=== PATIENT | male | born 1945 | race Caucasian/White ===

== ENCOUNTER 2024-07-16 08:03 | Inpatient (IN) | payer OTHER ==
[~2024-07-16] VITALS: Ht 165.1 cm; Wt 60.3 kg
[2024-07-16] VITALS (16 sets, daily range): BP systolic 30–113; BP diastolic 17–77; PULSE 75–103; RESP 17–34; TEMP 95.1–96.7; O2SAT 82–100
[2024-07-16] MEDS: NACL 0.9% 1,000 ML IV ONE (08:35)
[2024-07-16] MEDS: ETOMIDATE 20 MG/10 ML VIAL IVP ONE (08:35)
[2024-07-16] MEDS: SUCCINYLCHOLINE CHLORIDE 200 MG/10 ML VIAL IVP ONE (08:35)
[2024-07-16] MEDS: EPINEPHrine PFS 0.1 MG/ML SYR IVP ONE (08:45)
[2024-07-16 08:46] LABS: ANION GAP 27.1 (8-16); CALCIUM 8.9 mg/dL (8.5-10.1); CARBON DIOXIDE 11.6 mmol/L (21-32); CHLORIDE 89 mmol/L (98-107); CREATININE 2.9 mg/dL (0.6-1.3); GLUCOSE 190 mg/dL (74-106); POTASSIUM 5.7 mmol/L (3.5-5.1); SODIUM SERUM 122 mmol/L (136-145); UREA NITROGEN, BLOOD 55 mg/dL (7-18)
[2024-07-16] MEDS ORDERED: INTUBATION KIT MC ONE (09:00)
[2024-07-16] MEDS: NOREPINEPHRINE 4 MG in DEXTROSE 5% 250 ML IV ONE ×2 (09:30→11:35)
[2024-07-16 09:55] LABS: BASOPHILS % (AUTO) 0.7 % (0.0-2.0); EOSINOPHILS # (AUTO) 0.1 K/uL (0-0.4); EOSINOPHILS % (AUTO) 1.5 % (0.0-4.0); HEMATOCRIT 39.8 % (36-52); HEMOGLOBIN 13.4 g/dL (12.0-18.0); LYMPHOCYTES # (AUTO) 0.9 K/uL (2.0-11.5); LYMPHOCYTES % (AUTO) 17.8 % (20.5-51.1); MEAN CORPUSCULAR HEMOGLOBIN 34 pg (27-31); MEAN CORPUSCULAR HGB CONC 34 g/dL (33-37); MONOCYTES # (AUTO) 0.3 K/uL (0.8-1.0); MONOCYTES % (AUTO) 7.2 % (1.7-9.3); NEUTROPHILS # (AUTO) 3.5 K/uL (1.8-7.7); NEUTROPHILS % (AUTO) 72.8 % (42.2-75.2); PLATELET COUNT (AUTO) 140 K/uL (140-450); RED BLOOD CELL COUNT(AUTO) 3.94 MIL/uL (4.20-6.10); WHITE BLOOD COUNT (AUTO) 4.8 K/uL (4.8-10.8)
[2024-07-16 09:58] LABS: APPEARANCE,URINE CLEAR (CLEAR); BILIRUBIN,URINE 1+ (NEGATIVE); BLOOD, URINE NEGATIVE (NEGATIVE); COLOR,URINE YELLOW (YELLOW); LEUKOCYTE ESTERASE ,URINE NEGATIVE (NEGATIVE); NITRITE, URINE NEGATIVE (NEGATIVE); PROTEIN,URINE NEGATIVE (NEGATIVE); UGLUCOSE NEGATIVE (NEGATIVE); UROBILINOGEN,URINE 0.2 EU/dL (0.2 - 1)
[2024-07-16 10:01] LABS: ICTOTEST NEGATIVE (NEGATIVE)
[2024-07-16 10:06] LABS: AMPHETAMINE, URINE NEGATIVE ng/ml (NEG <=1000); BARBITURATE, URINE NEGATIVE ng/ml (NEG <=200)
[2024-07-16 10:07] LABS: BENZODIAZEPINE, URINE POSITIVE ng/mL (NEG <=200); CANNABINOID, URINE NEGATIVE ng/mL (NEG <=50); COCAINE, URINE NEGATIVE ng/mL (NEG <=300); OPIATE, URINE NEGATIVE ng/mL (NEG <=2000); PHENCYCLIDINE SCREEN,URINE NEGATIVE ng/mL (NEG <=25)
[2024-07-16 10:15] LABS: BLOOD GAS HCO3 10.1 mmol/L (21.0-28.0); BLOOD GAS PCO2 31.2 mmHg (35.0-48.0); BLOOD GAS PH 7.126 (7.350-7.450); BLOOD GAS PO2 246.7 mmHg (83.0-108.0)
[2024-07-16 10:17] LABS: BLOOD GAS O2 SAT% 99.1 % (94.0-98.0)
[2024-07-16] MEDS ORDERED: PIPERACILLIN/TAZOBACTAM 2.25 GM VIAL IV ONE (10:18)
[2024-07-16] MEDS: ALBUMIN HUMAN 5 % 250 ML IV ONE (10:23)
[2024-07-16 10:27] LABS: ALANINE AMINOTRANSFERASE 22 U/L (12-78); ALBUMIN 2.4 g/dL (3.4-5.0); ALCOHOL, BLOOD < 3 mg/dL (<10); ALKALINE PHOSPHATASE 167 U/L (50-136); ASPARTATE AMINOTRANSFERASE 49 U/L (15-37); BILIRUBIN,DIRECT 1.3 mg/dL (0.0-0.3); CREATINE KINASE, TOTAL 60 U/L (39-308); TOTAL BILIRUBIN 3.3 mg/dL (0.0-1.0); TOTAL PROTEIN, SERUM 6.3 g/dL (6.4-8.2)
[2024-07-16 10:28] LABS: SALICYLATE < 2.8 mg/dL (2.8-20.0)
[2024-07-16 10:29] LABS: ACETAMINOPHEN < 0.5 ug/ml (10-30)
[2024-07-16 10:30] LABS: LACTIC ACID 13.7 mmol/L (0.4-2.0)
[2024-07-16 11:18] LABS: FLU A ANTIGEN negative (NEGATIVE); FLU B ANTIGEN negative (NEGATIVE)
[2024-07-16] MEDS: PIPERACILLIN/TAZOBACTAM 2.25 GM in DEXTROSE 5% 50 ML IV ONE (11:36)
[2024-07-16] MEDS ORDERED: VANCOMYCIN 1,000 MG VIAL ONE (11:38)
[2024-07-16] MEDS: VANCOMYCIN 1,000 MG in DEXTROSE 5% 250 ML IV ONE (12:02)
[2024-07-16] MEDS: NOREPINEPHRINE 4 MG in DEXTROSE 5% 250 ML IV PRN (12:20)
[2024-07-16] MEDS ORDERED: MORPHINE SULFATE 2 MG/ML SYR IVP PRN (12:25)
[2024-07-16] MEDS ORDERED: NACL 0.9% 1,000 ML IV SCH (12:25)
[2024-07-16] MEDS ORDERED: ONDANSETRON 4 MG/2 ML VIAL IVP PRN (12:25)
[2024-07-16] MEDS ORDERED: ACETAMINOPHEN 325 MG TAB PO PRN (12:25)
[2024-07-16] MEDS ORDERED: VANCOMYCIN PER PHARMACY MC PRN (12:30)
[2024-07-16 12:34] LABS: BLOOD GAS PH 7.011 (7.350-7.450)
[2024-07-16 12:35] LABS: BLOOD GAS BASE EXCESS -19.7 mmol/L (-2.0-3.0); BLOOD GAS HCO3 10.9 mmol/L (21.0-28.0); BLOOD GAS PCO2 44.1 mmHg (35.0-48.0); BLOOD GAS PO2 92.5 mmHg (83.0-108.0)
[2024-07-16] MEDS ORDERED: EPINEPHrine 1 mg/mL 1 MG in DEXTROSE 5% 250 ML IV PRN (12:35)
[2024-07-16 12:36] LABS: BLOOD GAS O2 SAT% 91.5 % (94.0-98.0); FRACTIONATED INSPIRED OXYGEN 0.75 % (0.21-100.00)
[2024-07-16] MEDS: SODIUM BICARBONATE 8.4% PFS 50 MEQ/50 ML SYR IVP SCH ×3 (12:50→16:26)
[2024-07-16] MEDS: PROPOFOL 1000 MG/100 ML PREMIX 100 ML IV ONE (12:54)
[2024-07-16] MEDS ORDERED: PIPERACILLIN/TAZOBACTAM 3.375 GM in DEXTROSE 5% 50 ML IV SCH (13:00)
[2024-07-16] MEDS: OCTREOTIDE ACETATE 1.25 MG in NACL 0.9% 250 ML IV SCH (13:15)
[2024-07-16] MEDS: EPINEPHrine 1 mg/mL 5 MG in DEXTROSE 5% 250 ML IV PRN (14:26)
[2024-07-16] MEDS: NOREPINEPHRINE 16 MG in DEXTROSE 5% 250 ML IV PRN (14:29)
[2024-07-16] MEDS: NOREPINEPHRINE 4 MG/4 ML VIAL IV ONE ×2 (14:30→23:37)
[2024-07-16] MEDS: HYDROCORTISONE NA SUCC 100 MG/2 ML VIAL IV SCH ×2 (14:33→17:54)
[2024-07-16] MEDS: PANTOPRAZOLE 40 MG INJ VIAL IVP SCH (14:33)
[2024-07-16] MEDS: PIPERACILLIN/TAZOBACTAM 2.25 GM in DEXTROSE 5% 50 ML IV SCH (14:37)
[2024-07-16] MEDS: SODIUM BICARBONATE 8.4% 150 MEQ in DEXTROSE 5% 1,000 ML IV SCH (14:38)
[2024-07-16] MEDS ORDERED: PHENYLEPHRINE 10 MG in NACL 0.9% 250 ML IV PRN (15:55)
[2024-07-16] MEDS: LORazepam 2 MG/ML VIAL IVP STA (16:14)
[2024-07-16] MEDS: EPINEPHrine 1 mg/mL 10 MG in DEXTROSE 5% 250 ML IV PRN (16:24)
[2024-07-16 16:25] LABS: BLOOD GAS BASE EXCESS -15.9 mmol/L (-2.0-3.0); BLOOD GAS HCO3 14.6 mmol/L (21.0-28.0); BLOOD GAS PCO2 55.2 mmHg (35.0-48.0); BLOOD GAS PH 7.039 (7.350-7.450); BLOOD GAS PO2 134.3 mmHg (83.0-108.0)
[2024-07-16 16:26] LABS: BLOOD GAS O2 SAT% 96.6 % (94.0-98.0)
[2024-07-16] MEDS: PHENYLEPHRINE 100 MG in NACL 0.9% 250 ML IV PRN (17:03)
[2024-07-16 18:07] LABS: BASOPHILS % (AUTO) 0.4 % (0.0-2.0); EOSINOPHILS % (AUTO) 1.7 % (0.0-4.0); HEMATOCRIT 35.1 % (36-52); HEMOGLOBIN 11.8 g/dL (12.0-18.0); LYMPHOCYTES # (AUTO) 0.5 K/uL (2.0-11.5); LYMPHOCYTES % (AUTO) 38.1 % (20.5-51.1); MEAN CORPUSCULAR HEMOGLOBIN 34 pg (27-31); MEAN CORPUSCULAR HGB CONC 34 g/dL (33-37); MEAN CORPUSCULAR VOLUME 101.4 fL (80-94); MONOCYTES # (AUTO) 0.1 K/uL (0.8-1.0); MONOCYTES % (AUTO) 6.7 % (1.7-9.3); NEUTROPHILS # (AUTO) 0.7 K/uL (1.8-7.7); NEUTROPHILS % (AUTO) 53.1 % (42.2-75.2); PLATELET COUNT (AUTO) 77 K/uL (140-450); RED BLOOD CELL COUNT(AUTO) 3.46 MIL/uL (4.20-6.10); RED CELL DISTRIBUTION WIDTH 16.9 % (11.6-13.7)
[2024-07-16 18:08] LABS: WHITE BLOOD COUNT (AUTO) 1.3 K/uL (4.8-10.8)
[2024-07-16 18:21] LABS: ALANINE AMINOTRANSFERASE 39 U/L (12-78); ALBUMIN 1.8 g/dL (3.4-5.0); ALKALINE PHOSPHATASE 113 U/L (50-136); ANION GAP 23.4 (8-16); ASPARTATE AMINOTRANSFERASE 93 U/L (15-37); CALCIUM 6.9 mg/dL (8.5-10.1); CARBON DIOXIDE 23.3 mmol/L (21-32); CHLORIDE 94 mmol/L (98-107); CREATININE 2.9 mg/dL (0.6-1.3); GLUCOSE 303 mg/dL (74-106); POTASSIUM 3.7 mmol/L (3.5-5.1); SODIUM SERUM 137 mmol/L (136-145); TOTAL BILIRUBIN 2.7 mg/dL (0.0-1.0); TOTAL PROTEIN, SERUM 4.3 g/dL (6.4-8.2); UREA NITROGEN, BLOOD 51 mg/dL (7-18)
[2024-07-16] MEDS: LORazepam 2 MG/ML VIAL ONE (19:21)
[2024-07-16] MEDS: PHENYLEPHRINE 10 MG/ML VIAL ONE (19:21)
[2024-07-16] MEDS: VASOPRESSIN 20 UNITS/ML VIAL ONE (19:22)
[2024-07-16] MEDS: VASOPRESSIN 20 UNITS in NACL 0.9% 250 ML IV SCH (21:55)
[2024-07-17] VITALS (9 sets, daily range): BP systolic 37–89; BP diastolic 21–47; PULSE 44–98; RESP 11–26; TEMP 97.5–101.4; O2SAT 0–100
[2024-07-17 00:17] LABS: BASOPHILS % (AUTO) 0.8 % (0.0-2.0); EOSINOPHILS % (AUTO) 1.4 % (0.0-4.0); HEMATOCRIT 33.5 % (36-52); HEMOGLOBIN 11.5 g/dL (12.0-18.0); LYMPHOCYTES # (AUTO) 0.5 K/uL (2.0-11.5); LYMPHOCYTES % (AUTO) 27.1 % (20.5-51.1); MEAN CORPUSCULAR HEMOGLOBIN 35 pg (27-31); MEAN CORPUSCULAR HGB CONC 34 g/dL (33-37); MEAN CORPUSCULAR VOLUME 101.6 fL (80-94); MONOCYTES # (AUTO) 0.3 K/uL (0.8-1.0); MONOCYTES % (AUTO) 13.8 % (1.7-9.3); NEUTROPHILS # (AUTO) 1.1 K/uL (1.8-7.7); NEUTROPHILS % (AUTO) 56.9 % (42.2-75.2); PLATELET COUNT (AUTO) 44 K/uL (140-450); RED CELL DISTRIBUTION WIDTH 17.1 % (11.6-13.7)
[2024-07-17 00:34] LABS: ALANINE AMINOTRANSFERASE 69 U/L (12-78); ALBUMIN 1.7 g/dL (3.4-5.0); ALKALINE PHOSPHATASE 90 U/L (50-136); ANION GAP 26.9 (8-16); ASPARTATE AMINOTRANSFERASE 164 U/L (15-37); CALCIUM 6.6 mg/dL (8.5-10.1); CARBON DIOXIDE 21.4 mmol/L (21-32); CHLORIDE 92 mmol/L (98-107); CREATININE 3.1 mg/dL (0.6-1.3); GLUCOSE 207 mg/dL (74-106); POTASSIUM 3.3 mmol/L (3.5-5.1); SODIUM SERUM 137 mmol/L (136-145); TOTAL BILIRUBIN 2.9 mg/dL (0.0-1.0); TOTAL PROTEIN, SERUM 4.1 g/dL (6.4-8.2); UREA NITROGEN, BLOOD 53 mg/dL (7-18)
[2024-07-17] MEDS: ACETAMINOPHEN 650 MG SUPP RC PRN (02:25)
[2024-07-17] MEDS: ACETAMINOPHEN 650 MG SUPP RC ONE (02:44)
[2024-07-17] MEDS: NOREPINEPHRINE 4 MG/4 ML VIAL IV ONE (03:45)
[2024-07-17 06:30] LABS: HEMATOCRIT 34.2 % (36-52); HEMOGLOBIN 11.3 g/dL (12.0-18.0); MEAN CORPUSCULAR HEMOGLOBIN 35 pg (27-31); MEAN CORPUSCULAR HGB CONC 33 g/dL (33-37); MEAN CORPUSCULAR VOLUME 104.5 fL (80-94); PLATELET COUNT (AUTO) 30 K/uL (140-450); RED BLOOD CELL COUNT(AUTO) 3.27 MIL/uL (4.20-6.10); RED CELL DISTRIBUTION WIDTH 17.5 % (11.6-13.7); WHITE BLOOD COUNT (AUTO) 4.1 K/uL (4.8-10.8)
[2024-07-17 06:42] LABS: ALANINE AMINOTRANSFERASE 290 U/L (12-78); ALBUMIN 1.6 g/dL (3.4-5.0); ALKALINE PHOSPHATASE 81 U/L (50-136); ANION GAP 31.2 (8-16); ASPARTATE AMINOTRANSFERASE 781 U/L (15-37); CALCIUM 6.7 mg/dL (8.5-10.1); CARBON DIOXIDE 21.7 mmol/L (21-32); CHLORIDE 88 mmol/L (98-107); CREATININE 3.5 mg/dL (0.6-1.3); GLUCOSE 173 mg/dL (74-106); MAGNESIUM 2.2 mg/dL (1.8-2.4); PHOSPHORUS 8.9 mg/dL (2.5-4.9); POTASSIUM 3.9 mmol/L (3.5-5.1); SODIUM SERUM 137 mmol/L (136-145); TOTAL BILIRUBIN 2.9 mg/dL (0.0-1.0); TOTAL PROTEIN, SERUM 4.2 g/dL (6.4-8.2); UREA NITROGEN, BLOOD 54 mg/dL (7-18)
[2024-07-17] MEDS: MORPHINE SULFATE 50 MG in NACL 0.9% 45 ML IV PRN (06:43)
[2024-07-17] MEDS: MORPHINE SULFATE 4 MG/ML SYR IVP ONE (06:46)
[2024-07-17 07:00] LABS: LYMPHOCYTES % (MANUAL) 21 % (20-46)
[2024-07-17 07:01] LABS: BASOPHILS % (MANUAL) 2 % (0-2); EOSINOPHILS % (MANUAL) 6 % (0-4); MONOCYTES % (MANUAL) 13 % (5-12)
[2024-07-17 07:04] LABS: MYELOCYTES % 2 % (0-0); PLATELET ESTIMATE DECREASED
[2024-07-17] MEDS: MORPHINE SULFATE 10 MG/ML VIAL ONE (07:11)
== END 2024-07-17 12:51 | DRG 871 ==
LOC: MED 08:03 → MIC 12:27
PROVIDERS: ADMIT Hospitalist; ATTEND Hospitalist
PROC: 5A1935Z Respiratory Ventilation, Less than 24 Consecutive Hours (ICD-10-PCS; principal; 2024-07-16)
PROC: 0BH17EZ Insertion of Endotracheal Airway into Trachea, Via Natural or Artificial Opening (ICD-10-PCS; 2024-07-16)
DX: A41.9 Sepsis, unspecified organism (principal); G93.41 Metabolic encephalopathy; J96.01 Acute respiratory failure with hypoxia; R65.21 Severe sepsis with septic shock; J69.0 Pneumonitis due to inhalation of food and vomit; N17.9 Acute kidney failure, unspecified; E87.1 Hypo-osmolality and hyponatremia; E87.20 Acidosis, unspecified; C22.8 Malignant neoplasm of liver, primary, unspecified as to type; Z20.822 Contact with and (suspected) exposure to COVID-19; Z66 Do not resuscitate; E87.5 Hyperkalemia; E11.9 Type 2 diabetes mellitus without complications; I11.0 Hypertensive heart disease with heart failure; I50.9 Heart failure, unspecified; Z95.0 Presence of cardiac pacemaker
CPT/HCPCS: 31500; 36415; 36600; 70450; 71045; 80048; 80053; 80076; 80202; 80305; 81003; 82550; 82803; 83605; 83735; 84100; 84484; 85025; 87040; 87081; 87186; 92950; 93005; 94002; 96361; 96374; 96375; 99291; 99292; G0480; G0482; J0171; J1720; J2060; J2270; J2354; J2470; J2543; J2704; J3370; J3490; J7030; J7060; P9041; Q0092